=== PATIENT | female | born 1955 | race Caucasian/White ===

== ENCOUNTER 2019-10-06 10:55 | Outpatient (CLI) | payer MEDICARE, OTHER ==
--- NOTE | 2019-10-06 13:10 | Mammography Report ---
Reason: ROUTINE MAMMO Procedure Date: 10/06/2019 Accession Number: [id number] / [id number] Procedure: [facility] - Screening Mammo w/Vinod CPT Code: Final Report FULL RESULT: EXAM: Screening Mammo w/Vinod DATE: 10/06/2019 12:05 PM CLINICAL HISTORY: Screening encounter. History of bilateral breast reduction surgery in 2009. TECHNIQUE: (B) - Bilateral CC and MLO views were obtained. COMPARISON: 04/27/2015. PARENCHYMAL PATTERN: (F) - The breast(s) demonstrate(s) diffuse fatty replacement. FINDINGS: There are no suspicious masses, calcifications, or areas of distortion. IMPRESSION: Negative examination. BI-RADS category 1. RECOMMENDATION: (ANNUAL) - Recommend routine annual screening mammography. BI-RADS CATEGORY: (1) - Negative. STANDARD QUALIFYING STATEMENTS: 1. This examination was not reviewed with the aid of Computer-Aided Detection (CAD). 2. A negative or benign imaging report should not preclude biopsy if clinically suspicious findings are present. 3. Dense breasts may obscure an underlying neoplasm. 4. This examination was reviewed with the aid of 3D breast imaging (tomosynthesis).
== END 2019-10-06 10:56 | disposition home or self-care (01) ==
LOC: DI.N 10:55
DX: Z12.31 Encounter for screening mammogram for malignant neoplasm of breast (principal)
CPT/HCPCS: 77063; 77067